=== PATIENT | male | born 1965 | race Caucasian/White ===

== ENCOUNTER 2024-12-17 10:32 | Outpatient (CLI) | payer BC | END 2024-12-17 10:33 | disposition home or self-care (01) | LOC: MRI 10:32 | PROVIDERS: ATTEND Registered Nurse | DX: M76.71 Peroneal tendinitis, right leg (principal); S96.811A Strain of other specified muscles and tendons at ankle and foot level, right foot, initial encounter; M65.971 Unspecified synovitis and tenosynovitis, right ankle and foot; M19.071 Primary osteoarthritis, right ankle and foot; M60.9 Myositis, unspecified ==